=== PATIENT | male | born 1960 | race American Indian/Alaskan Native ===

== ENCOUNTER 2017-10-27 00:05 | Inpatient (IN) | payer SELFPAY ==
[2017-10-27] MEDS ORDERED: CATAPRES ONE (01:09)
[2017-10-27] MEDS ORDERED: ZOFRAN ONE (01:10)
[2017-10-27] MEDS ORDERED: ZOFRAN IV ONE ×3 (01:34→03:34)
[2017-10-27] MEDS ORDERED: CATAPRES PO ONE (01:34)
--- NOTE | 2017-10-27 02:05 | XRay Report ---
FINAL REPORT PROCEDURE: XR CHEST ROUTINE 2V TECHNIQUE: PA and lateral chest radiographs were obtained. CPT 15004 HISTORY: chestpain and cough COMPARISON: No prior studies are available for comparison. FINDINGS: Heart: Normal. Mediastinum/Vessels: Normal. Lungs/Pleural space: Normal. Bony thorax: No acute osseous abnormality. Other: IMPRESSION: Normal examination.
[2017-10-27] MEDS: ASPIRIN PO ONE ×2 (02:08→03:34)
[2017-10-27 02:18] LABS: Basophils # (Auto) 0.1 K/mm3 (0.0-0.1); Basophils % (Auto) 0.6 % (0.0-1.8); Eosinophils # (Auto) 0.3 K/mm3 (0.0-0.4); Eosinophils % (Auto) 3.1 % (0.0-4.3); Hemoglobin 12.9 gm/dl (11.8-15.2); Lymphocytes # (Auto) 2.1 K/mm3 (1.2-5.4); Lymphocytes % (Auto) 21.7 % (13.4-35.0); Mean Corpuscular HGB Conc 32 % (32-34); Mean Corpuscular Volume 74 fl (84-94); Monocytes # (Auto) 0.8 K/mm3 (0.0-0.8); Monocytes % (Auto) 8.3 % (0.0-7.3); Platelet Count 484 K/mm3 (140-440); Red Blood Count 5.41 M/mm3 (3.65-5.03); Red Cell Distribution Width 18.1 % (13.2-15.2)
[2017-10-27 02:22] LABS: BUN/Creatinine Ratio 12; Blood Urea Nitrogen 14 mg/dL (9-20); Calcium 9.5 mg/dL (8.4-10.2); Hemolysis Index 1; Mean Corpuscular Hemoglobin 24 pg (28-32)
[2017-10-27 02:39] LABS: HDL Cholesterol 31 mg/dL (40-59); LDL Cholesterol,Direct 162 mg/dL (50-130)
[2017-10-27] MEDS ORDERED: MORPHINE IV ONE (03:13)
[2017-10-27] MEDS ORDERED: NITRO-BID 2% TP ONE (03:13)
[2017-10-27] MEDS ORDERED: MORPHINE ONE (03:15)
--- NOTE | 2017-10-27 03:21 | Emergency Department Report ---
HPI - General Chief Complaint: Chest Pain Time Seen by Provider: 10/27/17 03:04 - [facility] HPI: Room 24 The patient is a 57-year-old male presenting with a chief complaint of chest pain. The patient states this evening at 21:00 while at rest he developed substernal chest pain described as sharp in nature. Patient states the pain was intermittent and associated with nausea/vomiting, shortness of breath and diaphoresis. Patient currently gives his pain a score of 10/10. The patient states he is also notes bilateral lower extremity swelling for the past 2 months. Patient states his chest pain worsens in the supine position. Patient states he's never had a stress test and his last cardiac catheterization occurred over 5 years ago. The patient states his urine has had a strong odor to it lately Location: [See above] Duration: Intermittent since 21:00 Quality: Sharp Severity: Currently 10/10 Modifying factors: [see above] Context: [see above] Mode of transportation: [not driving] ED Past Medical Hx - Past Medical History Hx Hypertension: Yes Additional medical history: GOUT, Obesity. - Surgical History Past Surgical History?: No - Family History Family history: no significant - Social History Smoking Status: Never Smoker Substance Use Type: None (denies illicit drug use) - Medications Home Medications: Home Medications Medication Instructions Recorded Confirmed Last Taken Type No Known Home Medications [No 10/27/17 10/27/17 Unknown History Reported Home Medications] ED Review of Systems ROS: Stated complaint: CHEST PAIN/EMESIS Other details as noted in HPI Constitutional: diaphoresis Eyes: denies: eye pain ENT: denies: throat pain Respiratory: shortness of breath Cardiovascular: chest pain Endocrine: no symptoms reported Gastrointestinal: nausea, vomiting Genitourinary: other (malodorous urine) Musculoskeletal: denies: back pain Neurological: denies: headache Hematological/Lymphatic: other (bilateral lower extremity edema) Physical Exam - Physical Exam Vital Signs: Vital Signs 10/27/17 10/27/17 10/27/17 01:36 01:38 02:15 Temperature 98.7 F Pulse Rate 90 90 85 Respiratory 20 21 Rate Blood Pressure 235/138 208/115 Blood Pressure 235/138 [Left] O2 Sat by Pulse 98 97 Oximetry Physical Exam: GENERAL: The patient is well-developed well-nourished male sitting on edge that did not appear to be in acute distress. [] HEENT: Normocephalic. Atraumatic. Extraocular motions are intact. Patient has moist mucous membranes. NECK: Supple. Trachea midline CHEST/LUNGS: Clear to auscultation. There is no respiratory distress noted. HEART/CARDIOVASCULAR: Regular. There is no tachycardia. There is no gallop rub or murmur. ABDOMEN: Abdomen is soft, nontender. Patient has normal bowel sounds. There is no abdominal distention. SKIN: There is no rash. There is 2+ bilateral lower extremity pitting edema. There is no diaphoresis. NEURO: The patient is awake, alert, and oriented. The patient is cooperative. The patient has normal speech MUSCULOSKELETAL: There is no evidence of acute injury. ED Course Vital Signs 10/27/17 10/27/17 10/27/17 01:36 01:38 02:15 Temperature 98.7 F Pulse Rate 90 90 85 Respiratory 20 21 Rate Blood Pressure 235/138 208/115 Blood Pressure 235/138 [Left] O2 Sat by Pulse 98 97 Oximetry - Consultations Consultation #1: 10/27/17 03:17 Cardiology paged 10/27/17 03:[address] Ish Lees- recommends controlling blood pressure. Did not recommend administering heparin at this time. Will consult on patient ED Medical Decision Making - Lab Data Result diagrams: 10/27/17 01:56 10/27/17 01:56 Laboratory Tests 10/27/17 10/27/17 10/27/17 01:56 01:56 03:05 WBC 9.8 RBC 5.41 H Hgb 12.9 Hct 40.0 MCV 74 L MCH 24 L MCHC 32 RDW 18.1 H Plt Count 484 H Lymph % (Auto) 21.7 [place] % (Auto) 8.3 H Eos % (Auto) 3.1 Baso % (Auto) 0.6 Lymph # 2.1 [place] # 0.8 Eos # 0.3 Baso # 0.1 Seg Neutrophils % 66.3 Seg Neutrophils # 6.5 Sodium 140 Potassium 3.8 Chloride 98.6 Carbon Dioxide 28 Anion Gap 17 BUN 14 Creatinine 1.2 Estimated GFR > 60 BUN/Creatinine Ratio 12 Glucose 145 H Calcium 9.5 Troponin T 0.074 H NT-Pro-B Natriuret Pep 203.9 Triglycerides 228 H Cholesterol 211 H LDL Cholesterol Direct 162 H HDL Cholesterol 31 L Cholesterol/HDL Ratio 6.80 - EKG Data -: EKG Interpreted by Me EKG shows normal: sinus rhythm Rate: normal - EKG Data When compared to previous EKG there are: previous EKG unavailable Interpretation: other (no ischemic changes seen) - Radiology Data Radiology results: report reviewed (chest x-ray), image reviewed (chest x-ray) interpreted by me: Chest x-ray-no focal infiltrates, no pneumothorax [facility] [address] [place] [address] XRay Report Signed Patient: HALLIE LAFLEUR MR#: [id number] : 1960 Acct:[id number] Age/Sex: 57 / M ADM Date: 10/27/17 Loc: ED Attending Dr: Ordering Physician: ED MD YVONNE Date of Service: 10/27/17 Procedure(s): XR chest routine 2V Accession Number(s): [id number] cc: ED MD YVONNE Fluoro Time In Minutes: FINAL REPORT PROCEDURE: XR CHEST ROUTINE 2V TECHNIQUE: PA and lateral chest radiographs were obtained. CPT 68449 HISTORY: chestpain and cough COMPARISON: No prior studies are available for comparison. FINDINGS: Heart: Normal. Mediastinum/Vessels: Normal. Lungs/Pleural space: Normal. Bony thorax: No acute osseous abnormality. Other: IMPRESSION: Normal examination. Transcribed By: [facility] Dictated By: KIRSTEN CALLAWAY MD Electronically Authenticated By: KIRSTEN CALLAWAY MD Signed Date/Time: 10/27/17157 DD/ 7 TD/TT: 10/27/17157 - Differential Diagnosis NSTEMI, hypertensive urgency, pericarditis Critical care attestation.: If time is entered above; I have spent that time in minutes in the direct care of this critically ill patient, excluding procedure time. ED Disposition Clinical Impression: Chest pain, Hypertensive urgency, Elevated troponin Disposition: OP ADMIT IP TO THIS HOSP Is pt being admited?: Yes Does the pt Need Aspirin: Yes Condition: Serious Instructions: Chest Pain (ED) Referrals: PRIMARY CARE, [Primary Care Provider] - 3-5 Days Time of Disposition: 03:58 (hospitalist paged (Dr. Mary Wells))
[2017-10-27 04:00] LABS: Color,Urine Straw (Yellow)
[2017-10-27 04:01] LABS: Bilirubin,Urine NEG (Negative); Blood,Urine NEG (Negative); Protein,Urine <15 mg/dL mg/dL (Negative); Urobilinogen,Urine < 2.0 mg/dL (<2.0); WBC,Urine < 1.0 /HPF (0.0-6.0)
[2017-10-27] MEDS ORDERED: NORMODYNE IV ONE (04:13)
[2017-10-27] MEDS ORDERED: MORPHINE IV PRN (04:42)
[2017-10-27] MEDS ORDERED: ZOFRAN IV PRN (04:42)
[2017-10-27] MEDS ORDERED: TYLENOL PO PRN (04:42)
[2017-10-27] MEDS ORDERED: SODIUM CHLORIDE FLUSH SYRINGE 10 ML IV PRN (04:42)
[2017-10-27] MEDS ORDERED: APRESOLINE IV PRN (04:46)
--- NOTE | 2017-10-27 04:48 | History and Physical Report ---
History of Present Illness Date of examination: 10/27/17 History of present illness: 57-year-old man with history of hypertension, noncompliant to medications comes emergency room complaints of chest pain located in the left substernal and epigastric area which he describes as hurting pain , intensity 6/10, intermittent every 4 minutes, no radiation, he cannot identify exacerbating or relieving factors. Admits to nausea vomiting, shortness breath, no diaphoresis , palpitation Review of systems Constitutional: no weight loss, chills, fever Ears, eyes, nose, mouth and throat: no nasal congestion, no nasal discharge, no sinus pressure, no vision change, no red eye. Neck: No neck pain or rigidity. Cardiovascular: no palpitations Respiratory: no cough, +shortness of breath Gastrointestinal: no abdominal pain hematochezia Genitourinary : no frequency , no hematuria Musculoskeletal: no joint swelling or muscle ache Integumentary: no rash, no pruritis Neurological: no parathesias, no numbness, no focal weakness Endocrine: no cold or heat intolerance, no polyuria or polydipsia Hematologic/Lymphatic: no easy bruising, no easy bleeding, no gland swelling Allergic/Immunologic: no urticaria, no angioedema. PAST MEDICAL HISTORY: Hypertension PAST SURGICAL HISTORY: None SOCIAL HISTORY: Denies alcohol, tobacco, drugs FAMILY HISTORY: Hypertension Medications and Allergies Allergies Allergy/AdvReac Type Severity Reaction Status Date / Time No Known Allergies Allergy Unverified 03/14/16 17:34 Home Medications Medication Instructions Recorded Confirmed Last Taken Type No Known Home Medications [No 10/27/17 10/27/17 Unknown History Reported Home Medications] Active Meds: Active Medications Acetaminophen (Tylenol) 650 mg PO Q4H PRN PRN Reason: Pain MILD(1-3)/Fever >100.5/JON Aspirin (Aspirin) 325 mg PO QDAY VÍCTOR Enoxaparin Sodium (Lovenox) 30 mg SUB-Q QDAY VÍCTOR Morphine Sulfate (Morphine) 2 mg IV Q4H PRN PRN Reason: Pain, Moderate (4-6) Ondansetron HCl (Zofran) 4 mg IV Q4H PRN PRN Reason: Nausea And Vomiting Sodium Chloride (Sodium Chloride Flush Syringe 10 Ml) 10 ml IV BID VÍCTOR Sodium Chloride (Sodium Chloride Flush Syringe 10 Ml) 10 ml IV PRN PRN PRN Reason: LINE FLUSH Exam - Physical Exam Narrative exam: Gen. appearance: Patient lying in bed, no apparent distress HEENT: Normocephalic, atraumatic, pupils equally round and reactive to light, extraocular movement intact, and no sclericterus,. No JVD or thyromegaly or nodule,neck supple, no carotid bruit ,mucous membranes moist, no exudate or erythema Heart: S1, S2, regular rate and rhythm Lungs: Clear bilaterally, breathing comfortable Abdomen: Positive bowel sounds, non-tender, nondistended, no organomegaly Extremity:no edema cyanosis, clubbing Skin: no rash, dry, warm Neuro: Oriented 3, cranial nerves II-12 intact, speech is fluent, motor and sensory intact - Constitutional Vitals: Temp Pulse Resp BP Pulse Ox 98.7 F 70 12 173/87 98 10/27/17 01:36 10/27/17 04:40 10/27/17 04:40 10/27/17 04:40 10/27/17 04:40 Results - Labs CBC & Chem 7: 10/27/17 01:56 10/27/17 01:56 Labs: Abnormal lab results 10/27/17 10/27/17 Range/Units 01:56 01:56 RBC 5.41 H (3.65-5.03) M/mm3 MCV 74 L (84-94) fl MCH 24 L (28-32) pg RDW 18.1 H (13.2-15.2) % Plt Count 484 H (140-440) K/mm3 [place] % (Auto) 8.3 H (0.0-7.3) % Glucose 145 H (75-100) mg/dL Troponin T 0.074 H (0.00-0.029) ng/mL Triglycerides 228 H (2-149) mg/dL Cholesterol 211 H (50-199) mg/dL LDL Cholesterol Direct 162 H (50-130) mg/dL HDL Cholesterol 31 L (40-59) mg/dL - Imaging and Cardiology EKG: image reviewed Chest x-ray: image reviewed Assessment and Plan Assessment Hypertensive urgency NSTMI Plan Admit medicine Start aspirin, lopressor, IV morphine, consult cardiology check cardiac enzymes IV hydralazine as needed fpr blood pressure control DVT prophylaxis
--- NOTE | 2017-10-27 09:25 | Progress Note ---
Assessment and Plan Assessment and plan: NSTEMI, Chest pain Troponin rising further 0.074 to 0.146 to 0.523 On Aspirin, Metoprolol. Start Heparin drip, start Nitropaste cardiology consulted Hypertensive emergency Hydralazine iv prn. Metoprolol Morbid obesity. I counseled him on diet and exercise. Full code status. History Interval history: Chest pain, improved but present. Has not taken anti-hypertensives > 2yrs Hospitalist Physical - Physical exam Narrative exam: Gen:Not in acute distress, lying in bed,morbidly obese HEENT:Normocephalic atraumatic Neck: Supple, no JVD Lungs:clear to auscultation bilaterally, no rhonchi, no wheeze Heart:S1 and S2 reg, no murmurs, rubs or gallop Abd: Soft, non tender, non distended, normal bowel sounds Ext: No edema, clubbing or cyanosis Neuro:Awake,alert,oriented x 3, no focal signs Psych:normal mood - Constitutional Vitals: Temp Pulse Resp BP Pulse Ox 98.2 F 82 20 192/121 96 10/27/17 08:39 10/27/17 08:39 10/27/17 08:39 10/27/17 08:39 10/27/17 05:35 Results - Labs CBC & Chem 7: 10/27/17 01:56 10/27/17 01:56 Labs: Laboratory Last Values WBC 9.8 K/mm3 (4.5-11.0) 10/27/17 01:56 RBC 5.41 M/mm3 (3.65-5.03) H 10/27/17 01:56 Hgb 12.9 gm/dl (11.8-15.2) 10/27/17 01:56 Hct 40.0 % (35.5-45.6) 10/27/17 01:56 MCV 74 fl (84-94) L 10/27/17 01:56 MCH 24 pg (28-32) L 10/27/17 01:56 MCHC 32 % (32-34) 10/27/17 01:56 RDW 18.1 % (13.2-15.2) H 10/27/17 01:56 Plt Count 484 K/mm3 (140-440) H 10/27/17 01:56 Lymph % (Auto) 21.7 % (13.4-35.0) 10/27/17 01:56 [place] % (Auto) 8.3 % (0.0-7.3) H 10/27/17 01:56 Eos % (Auto) 3.1 % (0.0-4.3) 10/27/17 01:56 Baso % (Auto) 0.6 % (0.0-1.8) 10/27/17 01:56 Lymph # 2.1 K/mm3 (1.2-5.4) 10/27/17 01:56 [place] # 0.8 K/mm3 (0.0-0.8) 10/27/17 01:56 Eos # 0.3 K/mm3 (0.0-0.4) 10/27/17 01:56 Baso # 0.1 K/mm3 (0.0-0.1) 10/27/17 01:56 Seg Neutrophils % 66.3 % (40.0-70.0) 10/27/17 01:56 Seg Neutrophils # 6.5 K/mm3 (1.8-7.7) 10/27/17 01:56 Sodium 140 mmol/L (137-145) 10/27/17 01:56 Potassium 3.8 mmol/L (3.6-5.0) 10/27/17 01:56 Chloride 98.6 mmol/L (98-107) 10/27/17 01:56 Carbon Dioxide 28 mmol/L (22-30) 10/27/17 01:56 Anion Gap 17 mmol/L 10/27/17 01:56 BUN 14 mg/dL (9-20) 10/27/17 01:56 Creatinine 1.2 mg/dL (0.8-1.5) 10/27/17 01:56 Estimated GFR > 60 ml/min 10/27/17 01:56 BUN/Creatinine Ratio 12 % 10/27/17 01:56 Glucose 145 mg/dL (75-100) H 10/27/17 01:56 Calcium 9.5 mg/dL (8.4-10.2) 10/27/17 01:56 Total Creatine Kinase 741 units/L (55-170) H 10/27/17 04:47 CK-MB (CK-2) 51.0 ng/mL (0.0-4.0) H 10/27/17 04:47 CK-MB (CK-2) Rel Index 6.8 (0-4) H 10/27/17 04:47 Troponin T 0.523 ng/mL (0.00-0.029) H* D 10/27/17 07:12 NT-Pro-B Natriuret Pep 203.9 pg/mL (0-900) 10/27/17 03:05 Triglycerides 228 mg/dL (2-149) H 10/27/17 01:56 Cholesterol 211 mg/dL (50-199) H 10/27/17 01:56 LDL Cholesterol Direct 162 mg/dL (50-130) H 10/27/17 01:56 HDL Cholesterol 31 mg/dL (40-59) L 10/27/17 01:56 Cholesterol/HDL Ratio 6.80 % 10/27/17 01:56 Urine Color Straw (Yellow) 10/27/17 03:20 Urine Turbidity Clear (Clear) 10/27/17 03:20 Urine pH 6.0 (5.0-7.0) 10/27/17 03:20 Ur Specific [place] 1.011 (1.003-1.030) 10/27/17 03:20 Urine Protein <15 mg/dl mg/dL (Negative) 10/27/17 03:20 Urine Glucose (UA) Neg mg/dL (Negative) 10/27/17 03:20 Urine Ketones Neg mg/dL (Negative) 10/27/17 03:20 Urine Blood Neg (Negative) 10/27/17 03:20 Urine Nitrite Neg (Negative) 10/27/17 03:20 Urine Bilirubin Neg (Negative) 10/27/17 03:20 Urine Urobilinogen < 2.0 mg/dL (<2.0) 10/27/17 03:20 Ur Leukocyte Esterase Neg (Negative) 10/27/17 03:20 Urine WBC (Auto) < 1.0 /HPF (0.0-6.0) 10/27/17 03:20 Urine RBC (Auto) 2.0 /HPF (0.0-6.0) 10/27/17 03:20
--- NOTE | 2017-10-27 09:57 | Consultation ---
History of Present Illness Consult date: 10/27/17 Requesting physician: ROHIT VILLALTA Consult reason: chest pain, elevated troponin History of present illness: The pt is a 57 YO male with a past medical history significant for HTN, sleep apnea (noncompliant with CPAP), obesity. He is previously unknown to our practice. He presented with complaints of chest pain since last night around 9PM. He describes the pain as a constant, nonexertional, nonradiating midsternal chest pressure and burning. He also admits to BLE swelling and ALMEIDA for the past 3 weeks. He denies any palpitations, n/v, diaphoresis, dizziness or syncope. He reports that his chest pain was improved by IV morphine in the ED. He denies any prior cardiac issues, including AMI, CAD or HF. Following arrival to ED, his BPs were noted to be elevated. He reports that he was taken off anti-hypertensive medications 2 years ago by his PCP and thus has not been taking any medications at home. Past History Past Medical History: hypertension, other (MAYURI) Past Surgical History: No surgical history Social history: denies: smoking, alcohol abuse, prescription drug abuse Medications and Allergies Allergies Allergy/AdvReac Type Severity Reaction Status Date / Time No Known Allergies Allergy Unverified 03/14/16 17:34 Home Medications Medication Instructions Recorded Confirmed Last Taken Type No Known Home Medications [No 10/27/17 10/27/17 Unknown History Reported Home Medications] Active Meds: Active Medications Acetaminophen (Tylenol) 650 mg PO Q4H PRN PRN Reason: Pain MILD(1-3)/Fever >100.5/JON Aspirin (Aspirin) 325 mg PO QDAY [facility] Enoxaparin Sodium (Lovenox) 40 mg SUB-Q QDAY [facility] Hydralazine HCl (Apresoline) 20 mg IV Q4HR PRN PRN Reason: SBP>165 or DBP>105 Heparin Sodium/Sodium Chloride (Heparin/ 0.45% Nacl-25,000 Unit/500 Ml) 25,000 unit in 500 mls @ 47.97 mls/hr IV TITRATE VÍCTOR; Protocol Metoprolol Tartrate (Lopressor) 25 mg PO BID VÍCTOR Morphine Sulfate (Morphine) 2 mg IV Q4H PRN PRN Reason: Pain, Moderate (4-6) Nitroglycerin (Nitro-Bid 2%) 1 inch TP Q6H VÍCTOR; Protocol Ondansetron HCl (Zofran) 4 mg IV Q4H PRN PRN Reason: Nausea And Vomiting Pneumococcal Polyvalent Vaccine (Pneumovax 23) 0.5 ml IM .ONCE ONE Stop: 10/27/17 12:01 Sodium Chloride (Sodium Chloride Flush Syringe 10 Ml) 10 ml IV BID VÍCTOR Sodium Chloride (Sodium Chloride Flush Syringe 10 Ml) 10 ml IV PRN PRN PRN Reason: LINE FLUSH Review of Systems Constitutional: no weight loss, no weight gain, no fever, no chills, no sweats Ears, nose, mouth and throat: no ear pain, no nose pain, no sinus pain Cardiovascular: chest pain, shortness of breath, dyspnea on exertion, high blood pressure, leg edema, no orthopnea, no palpitations, no rapid/irregular heart beat, no edema, no syncope, no lightheadedness Respiratory: shortness of breath, dyspnea on exertion, no cough, no congestion, no wheezing, no pain on inspiration Gastrointestinal: no abdominal pain, no nausea, no vomiting, no diarrhea, no constipation, no change in bowel habits Genitourinary Male: no dysuria, no hematuria, no flank pain, no discharge, no urinary frequency, no urinary hesitancy Musculoskeletal: no neck stiffness, no neck pain, no shooting arm pain, no arm numbness/tingling, no low back pain, no shooting leg pain, no leg numbness/ tingling Integumentary: no rash, no pruritis, no wounds Neurological: no head injury, no paralysis, no weakness, no parathesias, no numbness, no tingling, no seizures, no syncope Psychiatric: no anxiety Endocrine: no cold intolerance, no heat intolerance Hematologic/Lymphatic: no easy bruising, no easy bleeding, no lymphadenopathy Allergic/Immunologic: no urticaria, no wheezing, no persistent infections Physical Examination Vital Signs Temp Pulse Resp BP Pulse Ox 98.7 F 90 20 235/138 98 10/27/17 01:36 10/27/17 01:36 10/27/17 01:36 10/27/17 01:36 10/27/17 01:36 General appearance: no acute distress HEENT: Positive: PERRL, Normocephaly, Mucus Membranes Moist Neck: Positive: neck supple, trachea midline Cardiac: Positive: Reg Rate and Rhythm, S1/S2 Lungs: Positive: Decreased Breath Sounds Neuro: Positive: Grossly Intact Abdomen: Positive: Soft. Negative: Tender Skin: Positive: Clear. Negative: Rash Musculoskeletal: No Pain Extremities: Present: +2 Edema (BLE) Results 10/27/17 10:03 10/27/17 01:56 Cardiac Enzymes 10/27/17 Range/Units 04:47 CK-MB (CK-2) 51.0 H (0.0-4.0) ng/mL Lipids 10/27/17 Range/Units 01:56 Triglycerides 228 H (2-149) mg/dL Cholesterol 211 H (50-199) mg/dL HDL Cholesterol 31 L (40-59) mg/dL Cholesterol/HDL Ratio 6.80 % CBC 10/27/17 Range/Units 01:56 WBC 9.8 (4.5-11.0) K/mm3 RBC 5.41 H (3.65-5.03) M/mm3 Hgb 12.9 (11.8-15.2) gm/dl Hct 40.0 (35.5-45.6) % Plt Count 484 H (140-440) K/mm3 Lymph # 2.1 (1.2-5.4) K/mm3 [place] # 0.8 (0.0-0.8) K/mm3 Eos # 0.3 (0.0-0.4) K/mm3 Baso # 0.1 (0.0-0.1) K/mm3 Comprehensive Metabolic Panel 10/27/17 Range/Units 01:56 Sodium 140 (137-145) mmol/L Potassium 3.8 (3.6-5.0) mmol/L Chloride 98.6 (98-107) mmol/L Carbon Dioxide 28 (22-30) mmol/L BUN 14 (9-20) mg/dL Creatinine 1.2 (0.8-1.5) mg/dL Glucose 145 H (75-100) mg/dL Calcium 9.5 (8.4-10.2) mg/dL - Imaging and Cardiology Echo: pending Cardiac cath: pending EKG: report reviewed, image reviewed EKG interpretations - Telemetry EKG Rhythm: Sinus Rhythm - EKG Sinus rhythms and dysrhythmias: sinus rhythm Assessment and Plan Agree with heparin gtt and ASA. Initiate lipitor and increase lopressor. Obtain echo. Coronary angiography recommended in setting of NSTEMI type I. Indications, potential risks and benefits of LHC reviewed with pt and he is agreeable to proceed with LHC in AM. NPO after MN. The patient has been seen in conjunction with Dr. Puentes who agrees with the assessment and plan of care. - Patient Problems (1) NSTEMI (non-ST elevated myocardial infarction) Current Visit: Yes Status: Acute (2) Hypertensive urgency Current Visit: Yes Status: Acute (3) Sleep apnea Current Visit: Yes Status: Chronic (4) Obesity Current Visit: Yes Status: Chronic
[2017-10-27] MEDS ORDERED: LOPRESSOR PO SCH (10:00)
[2017-10-27] MEDS ORDERED: LOVENOX SUB-Q SCH (10:00)
[2017-10-27] MEDS ORDERED: ASPIRIN PO SCH (10:00)
[2017-10-27] MEDS ORDERED: NACL 0.9% 500 ML 500 ML IV SCH (11:00)
[2017-10-27 11:03] LABS: Hematocrit 38.7 % (35.5-45.6); Hemoglobin 12.6 gm/dl (11.8-15.2)
[2017-10-27 11:13] LABS: INR 0.85 (0.87-1.13)
[2017-10-27 11:14] LABS: Partial Thromboplastin Time 29.1 Sec. (24.2-36.6)
[2017-10-27 11:30] LABS: Creatine Kinase MB 131.3 ng/mL (0.0-4.0)
[2017-10-27] MEDS ORDERED: PNEUMOVAX 23 IM ONE (12:00)
[2017-10-27] MEDS: NITRO-BID 2% TP SCH ×3 (12:42→22:59)
[2017-10-27] MEDS: HEPARIN/ 0.45% NACL-25,000 UNIT/500 ML 25,000 UNIT/500 ML BAG IV SCH ×2 (12:43→21:53)
[2017-10-27] MEDS: APRESOLINE IV PRN (12:43)
[2017-10-27] MEDS: SODIUM CHLORIDE FLUSH SYRINGE 10 ML IV SCH ×2 (12:45→21:50)
[2017-10-27] MEDS: LOPRESSOR PO SCH (21:49)
[2017-10-28] MEDS: HEPARIN/ 0.45% NACL-25,000 UNIT/500 ML 25,000 UNIT/500 ML BAG IV SCH (04:55)
[2017-10-28] MEDS: NITRO-BID 2% TP SCH ×4 (05:00→23:03)
[2017-10-28 05:15] LABS: Basophils # (Auto) 0.1 K/mm3 (0.0-0.1); Basophils % (Auto) 0.6 % (0.0-1.8); Eosinophils # (Auto) 0.1 K/mm3 (0.0-0.4); Eosinophils % (Auto) 0.8 % (0.0-4.3); Hematocrit 36.5 % (35.5-45.6); Lymphocytes % (Auto) 13.3 % (13.4-35.0); Mean Corpuscular HGB Conc 33 % (32-34); Mean Corpuscular Volume 74 fl (84-94); Monocytes # (Auto) 1.3 K/mm3 (0.0-0.8); Monocytes % (Auto) 8.5 % (0.0-7.3); Platelet Count 441 K/mm3 (140-440); Red Cell Distribution Width 18.1 % (13.2-15.2)
[2017-10-28 05:19] LABS: Mean Corpuscular Hemoglobin 24 pg (28-32)
[2017-10-28 05:25] LABS: INR 0.95 (0.87-1.13)
[2017-10-28 05:31] LABS: BUN/Creatinine Ratio 12; Blood Urea Nitrogen 17 mg/dL (9-20); Calcium 9.1 mg/dL (8.4-10.2); Hemolysis Index 48
[2017-10-28 05:34] LABS: Heparin anti-factor XA < 0.10 U.I./ml (0.3-0.7)
[2017-10-28] MEDS ORDERED: XYLOCAINE 2% INFILTRATI ONE (08:05)
[2017-10-28] MEDS ORDERED: HEPARIN/NS 5000 UNIT/500ML(CATH LAB) 1,500 ML IR ONE (08:05)
[2017-10-28] MEDS ORDERED: SUBLIMAZE ONE (08:05)
[2017-10-28] MEDS ORDERED: VERSED ONE (08:05)
[2017-10-28] MEDS ORDERED: CALAN ONE (08:05)
[2017-10-28] MEDS ORDERED: HEPARIN 10,000 UNITS/10 ML ONE (08:05)
[2017-10-28] MEDS ORDERED: NACL 0.9% 1000 ML 1,000 ML IV SCH (09:02)
--- NOTE | 2017-10-28 09:59 | Cardiac Catherization Report ---
CARDIAC CATHETERIZATION REPORT A 57-year-old -[place] gentleman with history of hypertension, sleep apnea and noncompliant with CPAP, and obesity, presented with chest pain to the Emergency Room at [facility]. His blood pressures were found to be elevated up to 235/138 at the time of presentation. EKG showed sinus rhythm with intraventricular conduction defect and right posterior fascicular block. Cardiac enzymes were found to be elevated with CK-MB of 51 ng/mL. Total cholesterol of 211 with HDL of 31, triglycerides of 228. Hemoglobin was 12.9 g/dL. His WBC count at the time of presentation is 9.8 thousand; however, on 10/28/2017 it is 14.8 thousand. BUN was 14 and creatinine of 1.2 on 10/27/2017. On the day of the procedure, BUN is 17 with creatinine of 1.4. Cardiac enzymes suggestive of non-STEMI. His LDL was found to be 162 mg/dL. Considering the acute coronary syndrome, it was decided to proceed with cardiac catheterization for definitive diagnosis and treatment. The patient is aware of the procedure, potential complications and alternatives of therapy available. The patient was evaluated for moderate sedation and he was felt to be appropriate candidate, but with close monitoring considering his morbid obesity and with history of sleep apnea. DESCRIPTION OF PROCEDURE: The patient was brought to the catheterization laboratory. The patient was prepared in a standard fashion. Right wrist area was prepared with chlorhexidine solution. The patient was sedated with IV Versed and fentanyl. Local anesthesia was given in the right wrist area and right radial artery puncture was made using 21-gauge arterial puncture needle. A 5-Guyanese slender sheath was used. A 5-Guyanese multipurpose catheter was used to obtain the angiograms of the left ventricle done in AYALA projection and subsequently angiograms of the left coronary artery and right coronary artery were obtained using 5-Guyanese TIG catheter. The patient tolerated the procedure well. The patient was sedated with 1 mg of Versed and 50 mcg of fentanyl. The patient tolerated the sedation well. The patient was given sedation at 8:23 a.m. During sedation, the patient was monitored with EKG, pulse oximetry, and hemodynamic monitoring and sedation end at 8:36 a.m. The patient tolerated the procedure well. No untoward complications were noted. At the end of the procedure, catheter and sheath were removed and good hemostasis was achieved with pressure bandage. Following findings were noted. HEMODYNAMICS: 1. Opening aortic pressure 153/95, left ventricular pressure 154/33. No gradient across the aortic valve. Estimated ejection fraction 50-55%. 2. Left ventriculogram done in AYALA projection using hand injection showed normal size left ventricle with normal contractility. Mitral regurgitation could not be evaluated. 3. Right coronary artery dominant vessel arises normally from right coronary cusp. This is dominant vessel with only minimal irregularities. 4. Left coronary artery arises normally from left coronary cusp. Left main without significant disease. LAD curves around the apex. LAD and its branches are without significant disease with minimal irregularities. There is a medium to large size ramus branch without significant disease. Circumflex artery gives rise to a small caliber 2 mm. First obtuse marginal branch shows thrombus in the proximal part with 95% lesion in the proximal part. Distal vessel is small caliber, still has JABIER 3 flow. Distal circumflex artery showed smooth 50% lesion. Distal to this lesion, the vessel is small caliber. Collaterals none. FINAL IMPRESSION: 1. Normal sized left ventricle with normal contractility. 2. Small caliber OM1 branch has thrombotic lesion with JABIER 3 flow considering the caliber of the vessel. It was felt this can be treated with medical therapy. Also, it is to be noted the patient is not compliant with his medical therapy in the past by history. PLAN: At this time is treat him aggressively with aspirin, Plavix in addition to atorvastatin 80 mg and control of blood pressure with metoprolol and losartan. He will be monitored as an outpatient. If the patient develops any recurrent anginal symptoms can consider intervention of the obtuse marginal branch; however, as mentioned above this is a small caliber vessel. The patient tolerated the procedure well. No untoward complications were noted. The patient was explained of the findings and he understands. JOB# [id number] CHON/BRENNON RUBIN
--- NOTE | 2017-10-28 11:40 | Progress Note ---
Assessment and Plan S/p [facility] this AM which showed small caliber OM1 branch with thrombotic lesion with JABIER 3 flow. Considering small caliber of the vessel, treat with medical therapy. Can consider intervention of the OM branch if pt develops any recurrent anginal symptoms. Decrease ASA to 81mg, initiate plavix and losartan, cont lopressor and statin. Pt may discharge home this afternoon following completion of post-cath order set and pending BP remain controlled. Follow up in our [place] office with Dr. Puentes on 11/03/2017 @ 8:30AM. The patient has been seen in conjunction with Dr. Puentes who agrees with the assessment and plan of care. - Patient Problems (1) NSTEMI (non-ST elevated myocardial infarction) Current Visit: Yes Status: Acute (2) Hypertensive urgency Current Visit: Yes Status: Acute (3) Sleep apnea Current Visit: Yes Status: Chronic (4) Obesity Current Visit: Yes Status: Chronic Subjective Date of service: 10/28/17 Principal diagnosis: NSTEMI Interval history: pt seen s/p [facility], currently denies any cardiac complaints. Objective Vital Signs Temp Pulse Resp BP BP Pulse Ox 10/28/17 05:04 98.2 F 83 18 142/83 92 10/28/17 03:52 85 10/27/17 21:49 85 163/74 10/27/17 19:39 98.7 F 20 163/74 10/27/17 17:00 98.0 F 85 20 162/96 99 10/27/17 14:07 83 10/27/17 12:43 89 179/113 - Physical Examination HEENT: Positive: PERRL, Normocephaly, Mucus Membranes Moist Neck: Positive: neck supple, trachea midline Neuro: Positive: Grossly Intact Abdomen: Positive: Soft. Negative: Tender Skin: Positive: Clear. Negative: Rash Musculoskeletal: No Pain Extremities: Present: +2 Edema (BLE) - Labs and Meds Coagulation 10/28/17 Range/Units 05:05 PT 13.2 (12.2-14.9) Sec. INR 0.95 (0.87-1.13) CBC 10/28/17 Range/Units 05:05 WBC 14.8 H (4.5-11.0) K/mm3 RBC 4.90 (3.65-5.03) M/mm3 Hgb 12.0 (11.8-15.2) gm/dl Hct 36.5 (35.5-45.6) % Plt Count 441 H (140-440) K/mm3 Lymph # 2.0 (1.2-5.4) K/mm3 [place] # 1.3 H (0.0-0.8) K/mm3 Eos # 0.1 (0.0-0.4) K/mm3 Baso # 0.1 (0.0-0.1) K/mm3 Comprehensive Metabolic Panel 10/28/17 Range/Units 05:05 Sodium 137 (137-145) mmol/L Potassium 4.2 (3.6-5.0) mmol/L Chloride 97.5 L (98-107) mmol/L Carbon Dioxide 28 (22-30) mmol/L BUN 17 (9-20) mg/dL Creatinine 1.4 (0.8-1.5) mg/dL Glucose 152 H (75-100) mg/dL Calcium 9.1 (8.4-10.2) mg/dL - Imaging and Cardiology EKG: report reviewed, image reviewed Echo: pending Cardiac cath: pending - EKG Sinus rhythms and dysrhythmias: sinus rhythm
--- NOTE | 2017-10-28 11:45 | Progress Note ---
Assessment and Plan Assessment and plan: NSTEMI, Chest pain On Aspirin, Plavix, Lipitor,Metoprolol. Had cardiac cath this morning revealing small caliber OM1 lesion medical management recommended Discussed with cardiology Hypertensive emergency Hydralazine iv prn. Metoprolol Rhabdomyolysis. Start Iv fluids. repeat Creatine kinase in am Morbid obesity. I counseled him on diet and exercise. Full code status. History Interval history: No more chest pain Had cardiac cath this morning Has not taken anti-hypertensives > 2yrs Hospitalist Physical - Physical exam Narrative exam: Gen:Not in acute distress, lying in bed,morbidly obese HEENT:Normocephalic atraumatic Neck: Supple, no JVD Lungs:clear to auscultation bilaterally, no rhonchi, no wheeze Heart:S1 and S2 reg, no murmurs, rubs or gallop Abd: Soft, non tender, non distended, normal bowel sounds Ext: No edema, clubbing or cyanosis Neuro:Awake,alert,oriented x 3, no focal signs Psych:normal mood - Constitutional Vitals: Temp Pulse Resp BP Pulse Ox 98.2 F 83 18 142/83 92 10/28/17 05:04 10/28/17 05:04 10/28/17 05:04 10/28/17 05:04 10/28/17 05:04 General appearance: Present: no acute distress Results - Labs CBC & Chem 7: 10/28/17 05:05 10/28/17 05:05 Labs: Laboratory Last Values WBC 14.8 K/mm3 (4.5-11.0) H 10/28/17 05:05 RBC 4.90 M/mm3 (3.65-5.03) 10/28/17 05:05 Hgb 12.0 gm/dl (11.8-15.2) 10/28/17 05:05 Hct 36.5 % (35.5-45.6) 10/28/17 05:05 MCV 74 fl (84-94) L 10/28/17 05:05 MCH 24 pg (28-32) L 10/28/17 05:05 MCHC 33 % (32-34) 10/28/17 05:05 RDW 18.1 % (13.2-15.2) H 10/28/17 05:05 Plt Count 441 K/mm3 (140-440) H 10/28/17 05:05 Lymph % (Auto) 13.3 % (13.4-35.0) L 10/28/17 05:05 [place] % (Auto) 8.5 % (0.0-7.3) H 10/28/17 05:05 Eos % (Auto) 0.8 % (0.0-4.3) 10/28/17 05:05 Baso % (Auto) 0.6 % (0.0-1.8) 10/28/17 05:05 Lymph # 2.0 K/mm3 (1.2-5.4) 10/28/17 05:05 [place] # 1.3 K/mm3 (0.0-0.8) H 10/28/17 05:05 Eos # 0.1 K/mm3 (0.0-0.4) 10/28/17 05:05 Baso # 0.1 K/mm3 (0.0-0.1) 10/28/17 05:05 Seg Neutrophils % 76.8 % (40.0-70.0) H 10/28/17 05:05 Seg Neutrophils # 11.4 K/mm3 (1.8-7.7) H 10/28/17 05:05 PT 13.2 Sec. (12.2-14.9) 10/28/17 05:05 INR 0.95 (0.87-1.13) 10/28/17 05:05 APTT 29.1 Sec. (24.2-36.6) 10/27/17 10:03 Heparin Anti-Xa Level < 0.10 U.I./ml (0.3-0.7) L 10/28/17 05:05 Sodium 137 mmol/L (137-145) 10/28/17 05:05 Potassium 4.2 mmol/L (3.6-5.0) 10/28/17 05:05 Chloride 97.5 mmol/L (98-107) L 10/28/17 05:05 Carbon Dioxide 28 mmol/L (22-30) 10/28/17 05:05 Anion Gap 16 mmol/L 10/28/17 05:05 BUN 17 mg/dL (9-20) 10/28/17 05:05 Creatinine 1.4 mg/dL (0.8-1.5) 10/28/17 05:05 Estimated GFR > 60 ml/min 10/28/17 05:05 BUN/Creatinine Ratio 12 % 10/28/17 05:05 Glucose 152 mg/dL (75-100) H 10/28/17 05:05 Calcium 9.1 mg/dL (8.4-10.2) 10/28/17 05:05 Total Creatine Kinase 1184 units/L (55-170) H 10/27/17 10:38 CK-MB (CK-2) 131.3 ng/mL (0.0-4.0) H 10/27/17 10:38 CK-MB (CK-2) Rel Index 11.0 (0-4) H 10/27/17 10:38 Troponin T 0.477 ng/mL (0.00-0.029) H* 10/27/17 10:38 NT-Pro-B Natriuret Pep 203.9 pg/mL (0-900) 10/27/17 03:05 Triglycerides 228 mg/dL (2-149) H 10/27/17 01:56 Cholesterol 211 mg/dL (50-199) H 10/27/17 01:56 LDL Cholesterol Direct 162 mg/dL (50-130) H 10/27/17 01:56 HDL Cholesterol 31 mg/dL (40-59) L 10/27/17 01:56 Cholesterol/HDL Ratio 6.80 % 10/27/17 01:56 Urine Color Straw (Yellow) 10/27/17 03:20 Urine Turbidity Clear (Clear) 10/27/17 03:20 Urine pH 6.0 (5.0-7.0) 10/27/17 03:20 Ur Specific [place] 1.011 (1.003-1.030) 10/27/17 03:20 Urine Protein <15 mg/dl mg/dL (Negative) 10/27/17 03:20 Urine Glucose (UA) Neg mg/dL (Negative) 10/27/17 03:20 Urine Ketones Neg mg/dL (Negative) 10/27/17 03:20 Urine Blood Neg (Negative) 10/27/17 03:20 Urine Nitrite Neg (Negative) 10/27/17 03:20 Urine Bilirubin Neg (Negative) 10/27/17 03:20 Urine Urobilinogen < 2.0 mg/dL (<2.0) 10/27/17 03:20 Ur Leukocyte Esterase Neg (Negative) 10/27/17 03:20 Urine WBC (Auto) < 1.0 /HPF (0.0-6.0) 10/27/17 03:20 Urine RBC (Auto) 2.0 /HPF (0.0-6.0) 10/27/17 03:20
[2017-10-28] MEDS: LOPRESSOR PO SCH ×2 (12:07→21:05)
[2017-10-28] MEDS: APRESOLINE IV PRN (12:07)
[2017-10-28] MEDS: SODIUM CHLORIDE FLUSH SYRINGE 10 ML IV SCH ×2 (12:08→23:02)
[2017-10-28] MEDS: COZAAR PO SCH (16:18)
[2017-10-28] MEDS: NACL 0.9% 1000 ML 1,000 ML IV SCH (16:18)
[2017-10-29] MEDS: NACL 0.9% 1000 ML 1,000 ML IV SCH (01:41)
[2017-10-29] MEDS: NITRO-BID 2% TP SCH (06:54)
[2017-10-29 07:17] LABS: Hematocrit 35.9 % (35.5-45.6); Hemoglobin 11.6 gm/dl (11.8-15.2); Mean Corpuscular HGB Conc 32 % (32-34); Mean Corpuscular Volume 74 fl (84-94); Platelet Count 441 K/mm3 (140-440); Red Blood Count 4.88 M/mm3 (3.65-5.03); Red Cell Distribution Width 18.1 % (13.2-15.2)
[2017-10-29 07:19] LABS: Mean Corpuscular Hemoglobin 24 pg (28-32)
[2017-10-29 07:28] LABS: BUN/Creatinine Ratio 15; Blood Urea Nitrogen 18 mg/dL (9-20); Calcium 8.9 mg/dL (8.4-10.2); Hemolysis Index 40
[2017-10-29] MEDS: LOPRESSOR PO SCH (09:20)
[2017-10-29] MEDS: COZAAR PO SCH (09:20)
[2017-10-29] MEDS: SODIUM CHLORIDE FLUSH SYRINGE 10 ML IV SCH (09:21)
[2017-10-29] MEDS ORDERED: BABY ASPIRIN PO SCH (10:00)
[2017-10-29] MEDS ORDERED: PLAVIX PO SCH (10:00)
--- NOTE | 2017-10-29 11:54 | Discharge Summary ---
Providers - Providers Date of Admission: 10/27/17 04:42 Date of discharge: 10/29/17 Attending physician: LINCOLN PIPER 10/27/17 03:56 Consult to Physician [CONS] Urgent Comment: Dr. Haines spoke with Dr. 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 2.Follow up with Dr. Short on 11/03/17. 3.No strenous activity until cleared by Physician. 4.Do not return to work until cleared by cardiology Follow up with: LORIN SHORT MD [Staff Physician] - 7 Days (Follow up in our [place] office with Dr. Short on 11/03/2017 @ 8:30AM. ) PRIMARY CAREMD [Primary Care Provider] - 3-5 Days Prescriptions: Aspirin EC [Aspirin Enteric Coated TAB] 81 mg PO QDAY #30 tablet. AtorvaSTATin [Lipitor] 80 mg PO QHS 30 Days tablet Clopidogrel [Plavix] 75 mg PO QDAY #30 tablet Losartan [Cozaar] 25 mg PO QDAY #30 tablet Metoprolol [Lopressor TAB] 50 mg PO BID #60 tablet
[2017-10-29 12:30] VITALS: BP 155/90
== END 2017-10-29 14:50 | disposition home or self-care (01) | DRG 281 ==
LOC: ED 00:05 → 4A 04:42
PROVIDERS: ADMIT Internal Medicine; ATTEND Internal Medicine
PROC: 3E0234Z Introduction of Serum, Toxoid and Vaccine into Muscle, Percutaneous Approach (ICD-10-PCS; 2017-10-27)
PROC: 4A023N7 Measurement of Cardiac Sampling and Pressure, Left Heart, Percutaneous Approach (ICD-10-PCS; principal; 2017-10-28)
PROC: B2111ZZ Fluoroscopy of Multiple Coronary Arteries using Low Osmolar Contrast (ICD-10-PCS; 2017-10-28)
PROC: B2151ZZ Fluoroscopy of Left Heart using Low Osmolar Contrast (ICD-10-PCS; 2017-10-28)
DX: I21.4 Non-ST elevation (NSTEMI) myocardial infarction (principal); Z68.44 Body mass index [BMI] 60.0-69.9, adult; I16.1 Hypertensive emergency; M62.82 Rhabdomyolysis; I16.0 Hypertensive urgency; G47.33 Obstructive sleep apnea (adult) (pediatric); M10.9 Gout, unspecified; E66.01 Morbid (severe) obesity due to excess calories; Z82.49 Family history of ischemic heart disease and other diseases of the circulatory system; Z91.14 Patient's other noncompliance with medication regimen; Z71.3 Dietary counseling and surveillance; Z23 Encounter for immunization
CPT/HCPCS: 36415; 71046; 80048; 80061; 81001; 82550; 82553; 82962; 83880; 84484; 85014; 85018; 85025; 85027; 85049; 85520; 85610; 85730; 90732; 93005; 93010; 93306; 93458; A9270-GY; C1887; C1894; J0360; J1644; J2250; J2270; J2405; J3010; J7030; J7040; Q9967

== ENCOUNTER 2020-07-09 07:58 | Day surgery (SDC) | payer MEDICAID ==
[2020-07-09] MEDS ORDERED: ASPIRIN EC 325 MG TAB PO ONE (08:36)
[2020-07-09] MEDS ORDERED: SODIUM CHLORIDE 0.9% 500 ML 500 ML IV SCH ×2 (09:00→12:00)
[2020-07-09 09:01] LABS: Basophils # (Auto) 0.1 K/mm3 (0.0-0.1); Basophils % (Auto) 0.9 % (0.0-1.8); Eosinophils # (Auto) 0.3 K/mm3 (0.0-0.4); Eosinophils % (Auto) 4.1 % (0.0-4.3); Hemoglobin 11.8 gm/dl (11.8-15.2); Lymphocytes % (Auto) 30.6 % (13.4-35.0); Mean Corpuscular HGB Conc 33 % (32-34); Mean Corpuscular Volume 77 fl (84-94); Monocytes # (Auto) 0.6 K/mm3 (0.0-0.8); Monocytes % (Auto) 8.7 % (0.0-7.3); Platelet Count 453 K/mm3 (140-440); Red Blood Count 4.69 M/mm3 (3.65-5.03); Red Cell Distribution Width 16.8 % (13.2-15.2)
[2020-07-09 09:15] LABS: INR 0.97 (0.87-1.13)
[2020-07-09 09:16] LABS: BUN/Creatinine Ratio 15; Blood Urea Nitrogen 19 mg/dL (9-20); Calcium 9.1 mg/dL (8.4-10.2); Hemolysis Index 0
[2020-07-09] MEDS ORDERED: HEPARIN 10,000 UNITS/10 ML VIAL ONE (10:04)
[2020-07-09] MEDS ORDERED: HEPARIN/NS 5000 UNIT/500ML 1,000 ML IR ONE (10:04)
[2020-07-09] MEDS ORDERED: VERAPAMIL 5 MG/2 ML INJ ONE (10:04)
[2020-07-09] MEDS ORDERED: NITROGLYCERIN SYRINGE 3 ML ONE (10:05)
[2020-07-09] MEDS: fentaNYL 100 MCG/2 ML INJ ONE ×2 (10:33→10:40)
[2020-07-09] MEDS: MIDAZOLAM 2 MG/2 ML INJ ONE ×2 (10:35→10:40)
[2020-07-09] MEDS: LIDOCAINE (2%) 20 MG/1 ML VIAL 20 ML MDV INFILTRATI ONE ×2 (10:35→10:41)
--- NOTE | 2020-07-09 11:28 | Discharge Summary ---
Short Stay Discharge Plan Activity: advance as tolerated Weight Bearing Status: Full Weight Bearing Diet: low fat, low cholesterol, low salt, diabetic Wound: keep clean and dry Special Instructions: smoking cessation, no heavy lifting (3 days), hold Metformin (48 hours) Follow up with: PRIMARY CARE,MD [Primary Care Provider] - 7 Days MICHELLE MONIQUE MD [Staff Physician] - 7 Days
[2020-07-09] MEDS ORDERED: SODIUM CHLORIDE 0.9% 1000 ML 1,000 ML IV SCH (11:30)
[2020-07-09] MEDS ORDERED: traMADol 50 MG TAB PO PRN (12:00)
--- NOTE | 2020-07-09 12:22 | Cardiac Catherization Report ---
CARDIAC CATHETERIZATION REPORT REASON FOR PROCEDURE: The patient is a 60-year-old man with no significant cardiac symptoms, underwent a cardiac PET scan that demonstrates lateral wall ischemia, prompting a recommendation for cardiac catheterization. PROCEDURES: 1. Left heart catheterization. 2. Selective left and right coronary angiography. 3. Left ventricular angiography. 4. Sedation time, start 10:40, end 10:56. I was present for the entire procedure and supervised the moderate sedation protocol. The patient was prepped and draped in a sterile fashion after informed consent. The right radial cath site was prepped and draped after a negative Noe's test. The right radial artery was entered using Seldinger technique followed by placement of a 6-Yemeni hydrophilic sheath. Routine radial cocktail was administered via the sheath. Selective left and right coronary angiography was performed using a #3.5 left Hieu, and a #4 right Hieu. A pigtail catheter was used for left ventricular angiography. The catheters were then removed, sheath removed, and hemostasis achieved using a TR band. The patient was returned to the postprocedure unit in stable condition. There were no complications. FINDINGS: HEMODYNAMICS: Left ventricular end-diastolic pressure was 25, following coronary angiography. Ascending aortic pressure 172/103. There was no significant pressure gradient on pullback across the aortic valve. CORONARY ANGIOGRAPHY: The left main coronary artery was free of significant disease. There was a long, up to 20% luminal stenosis of the proximal LAD. This was followed by another, 50% stenosis of the mid LAD. Otherwise, mild luminal irregularities were noted in the LAD and diagonal branches. The first obtuse marginal branch of the circumflex artery was a medium size vessel, that was completely occluded in its proximal segment. This was a long, chronic total occlusion. The distal anterolateral obtuse marginal was reconstituted faintly by bridging collaterals and left to left collaterals. Otherwise, the AV groove circumflex then continued, terminating in another, medium-sized terminal obtuse marginal. No other significant lesions were noted in the rest of the circumflex system. Right coronary artery was large dominant vessel. This vessel contained mild luminal irregularities in its proximal and mid segments, with no significant obstructive lesions noted. Left ventricle was mildly dilated, there was [id number] left ventricular systolic dysfunction with mild diffuse hypokinesis, left ventricular ejection fraction estimated at 35-40%. CONCLUSION: 1. 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 2. Mild nonobstructive disease of the proximal and mid segments of the LAD. 3. [id number] left ventricular systolic dysfunction, ejection fraction 35-40%. RECOMMENDATION: 1. Medical therapy for chronic total occlusion of circumflex branch vessel in an asymptomatic patient. 2. Aggressive risk factor modification and optimal guideline-directed medical therapy. 3. Disease of the proximal and mid LAD should be followed clinically with serial noninvasive testing indicated. JOB# [id number] CA/NTS
[2020-07-09 18:14] VITALS: BP 150/100
--- NOTE | 2020-07-11 11:26 | Electrocardiograph Report ---
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
== END 2020-07-09 07:59 | disposition home or self-care (01) ==
LOC: CATHLABREC 07:58
PROVIDERS: ATTEND Internal Medicine Cardiovascular Disease
DX: R94.30 Abnormal result of cardiovascular function study, unspecified (principal); I25.10 Atherosclerotic heart disease of native coronary artery without angina pectoris; I25.2 Old myocardial infarction; G47.30 Sleep apnea, unspecified; E78.5 Hyperlipidemia, unspecified; E66.9 Obesity, unspecified; I11.0 Hypertensive heart disease with heart failure; E11.9 Type 2 diabetes mellitus without complications; I50.9 Heart failure, unspecified; K21.9 Gastro-esophageal reflux disease without esophagitis; Z83.3 Family history of diabetes mellitus; Z79.899 Other long term (current) drug therapy; Z98.890 Other specified postprocedural states; Z68.44 Body mass index [BMI] 60.0-69.9, adult; Z82.49 Family history of ischemic heart disease and other diseases of the circulatory system
CPT/HCPCS: 36415; 80048; 85025; 85610; 85730; 93005; 93458; 99156; C1894; J1644; J2250; J3010; J7040; Q9967